=== PATIENT | female | born 2000 ===

== ENCOUNTER 2024-05-15 17:49 | Emergency (ER) | payer SELFPAY ==
[2024-05-15 17:54] VITALS: BP 100/60; PULSE 80; RESP 16; TEMP 37.1; O2SAT 99; BMI 22.2
--- NOTE | 2024-05-15 18:08 | USR_ITS ---
PROCEDURE INFORMATION: Exam: US Pelvis, Transvaginal, Non-Obstetric Exam date and time: 05/15/2024 6:48 PM Age: 23 years old Clinical indication: Other: Bleeding; Additional info: Vaginal bleeding TECHNIQUE: Imaging protocol: Real-time transvaginal pelvic (non-obstetric) ultrasound with image documentation. Transvaginal imaging was used for better evaluation of the endometrium, adnexa, and/or cervix. COMPARISON: No relevant prior studies available. FINDINGS: Uterus: Uterus is retroverted, measuring 3.7 x 4.7 x 4.6 cm. Endometrium measures 4-5 mm in thickness. Intrauterine device in place, lower in position than expected in the region of the lower uterine segment. Right ovary/adnexa: Right ovary measures 4.6 x 4.5 x 3.1 cm. Flow is visualized. Thick-walled right adnexal cyst measuring 3.6 x 2.6 x 2.7 cm. There is an adjacent mildly complex 2.0 cm cyst. Left ovary/adnexa: Left ovary measures 1.5 x 2.0 x 1.7 cm. Flow is visualized. No evidence of adnexal mass. Intraperitoneal space: No significant free fluid. US/US transvaginal [id number] IMPRESSION: 1. Normal flow in both ovaries. No evidence of torsion. 2. Mildly complex thick-walled right adnexal cyst. Follow-up pelvic sonography and ob/gyn physician evaluation in 6-8 weeks is recommended. 3. Intrauterine device within the lower uterine segment. Fabrication Engineer evaluation is recommended.
--- NOTE | 2024-05-15 18:10 | ED_ITS ---
HPI - Female Genitourinary 2 General: Chief complaint: Vaginal Bleeding Stated complaint: vaginal bleeding Time Seen by Provider: 05/15/24 17:54 Source: patient and EMS Mode of arrival: EMS Limitations: no limitations History of Present Illness: 23-year-old female here by ambulance sta michaela she has been having vaginal bleeding off and on for the last 15 days. States the bleeding has not been heavy in nature she has not had any pain she states she does not believe she is she states she normal has a regular period. Patient denies any fever or vaginal discharge states she does have an IUD has been in place for quite some time. Associated symptoms: Deny abdominal pain, headache(s) or nausea Date of Last Menstrual Period: 05/03/24 Related Data Allergies Allergy/AdvReac Type Severity Reaction Status Date / Time No Known Allergies Allergy Verified 05/15/24 18:00 Review of Systems 2 Const: Denies: fever(s), chills, body aches or change in appetite ENMT: Denies: throat pain or dental pain Card: Denies: chest pain Resp: Denies: dyspnea GI: Denies: abdominal pain, nausea, vomiting or diarrhea : Reports: vaginal bleeding Musc: Denies: neck pain or back pain Skin/Breast: Denies: rash Neuro: Denies: headache(s) [facility] ED 2 Female Reproductive History: Date of last menstrual period: 05/03/24 Physical Exam 2 Const: COMMON NORMALS: no acute distress, patient oriented x3 and healthy appearing HENMT: COMMON NORMALS: normocephalic and atraumatic HEAD & SCALP: n ormocephalic and atraumatic Neck/C-Spine: COMMON NORMALS: full ROM and supple Chest: COMMONS NORMALS: normal inspection of the chest Resp: COMMON NORMALS: normal respiratory effort Cardio: COMMON NORMALS: regular rate, regular rhythm and No murmurs present (Cardio) RATE: regular rate RHYTHM: regular rhythm GI: COMMON NORMALS: Normal to inspection, nondistended, normoactive bowel sounds present, Soft to palpation, non-tender and no masses PALPATION: Yes Soft to palpation Extremity: COMMON NORMALS: normal to inspection and full ROM Neuro: COMMON NORMALS: patient oriented x3, moves all extremities and no focal motor deficits Psych: COMMON NORMALS: mental status grossly normal, Normal thought process present and cooperative THOUGHT PROCESS: Normal thought process present Skin: COMMON NORMALS: no rashes or lesions noted and no wounds GENERAL SKIN EXAM: no rashes or lesions noted Course 2 Vital Signs: Vital signs: Vital Signs Temperature 98.7 F 05/15/24 17:54 Pulse Rate 80 05/15/24 17:54 Respiratory Rate 16 05/15/24 17:54 Blood Pressure 100/60 05/15/24 17:54 Pulse Oximetry 99 05/15/24 17:54 Oxygen Delivery Me thod Room Air 05/15/24 17:54 MDM - Female Medical Decision Making Patient presents here with vaginal bleeding her hemoglobin here is normal she is not ultrasound did show that her IUD has migrated I did speak to OB patient is to follow-up with OB outpatient to have it removed she is in no distress or pain no will discharge she is return if worsening she understands agrees to plan Medical Records I reviewed the patient's medical records. Lab Data I reviewed the patient's lab results. 05/15/24 18:22 Laboratory Results WBC 8.03 10^3/uL (3.29-11.43) 05/15/24 18:22 RBC 4.39 10^6/uL (3.85-5.65) 05/15/24 18:22 Hgb 13.30 g/dL (11.27-16.99) 05/15/24 18:22 Hct 40.1 % (36-47) 05/15/24 18:22 MCV 91.3 fl (85-98) 05/15/24 18:22 MCH 30.3 pg (27-33) 05/15/24 18:22 MCHC 33.2 g/dL (30-55) 05/15/24 18:22 RDW 12.8 % (12.1-15.1) 05/15/24 18:22 Plt Count 426 10^3/cmm (157-399) H 05/15/24 18:22 MPV 9.8 fL (7.4-10.4) 05/15/24 18:22 Neut % (Auto) 70.0 % 05/15/24 18:22 Lymph % (Auto) 20.0 % 05/15/24 18:22 [place]ee % (Auto) 7.0 % 05/15/24 18:22 Eos % (Auto) 1.7 % 05/15/24 18:22 Baso % (Auto) 0.6 % 05/15/24 18:22 Neut # (Auto) 5.61 10^3/uL (1.8-7.7) 05/15/24 18:22 Lymph # (Auto) 1.6 10^3/uL (0.8-4.8) 05/15/24 18:22 [place]ee # (Auto) 0.6 10^3/uL (0.2-0.9) 05/15/24 18:22 Eos # (Auto) 0.1 10^3/uL (0.0-0.8) 05/15/24 18:22 Baso # (Auto) 0.1 10^3/uL (0.0-0.1) 05/15/24 18:22 Nucleated RBC % (auto) 0 % 05/15/24 18:22 Nucleated RBCs # 0.0 /100WBC 05/15/24 18:22 PT 13.10 SECONDS (12.1-14.9) 05/15/24 18:22 INR 0.96 (0.8-1.2) 05/15/24 18:22 Ser , Semi-Qnt 1.00 mIU/mL 05/15/24 18:22 All radiology interpretation(s) finalized by discharge Discharge Plan Discharge Patient Disposition: Home Clinical Impression: Vaginal bleeding, Malpositioned IUD Condition: Stable Discharge Orders: Discharge ED (Routine); Ordered 05/15/24 Ordered By: Abel Bingham Referrals: Jhony Raygoza MD [Physician] - 4-7 days Discharge Diet: Advance as tolerated Discharge Activity: Resume usual activity Patient Instructions: Abnormal (Dysfunctional) Uterine Bleeding (ED) Coding Level of Care Code ED [employer] for Chg Michael
[2024-05-15 18:51] LABS: INR 0.96 (0.8-1.2)
[2024-05-15 19:08] LABS: Basophils # 0.1 10^3/uL (0.0-0.1); Basophils % 0.6 %; Eosinophils # 0.1 10^3/uL (0.0-0.8); Eosinophils % 1.7 %; Hematocrit 40.1 % (36-47); Lymphocytes # 1.6 10^3/uL (0.8-4.8); Mean Corpuscular HGB Conc 33.2 g/dL (30-55); Mean Corpuscular Hemoglobin 30.3 pg (27-33); Mean Corpuscular Volume 91.3 fl (85-98); Mean Platelet Volume 9.8 fL (7.4-10.4); Monocytes # 0.6 10^3/uL (0.2-0.9); Neutrophils # 5.61 10^3/uL (1.8-7.7); Nucleated Red Blood Cells % 0 %; Platelet Count 426 10^3/cmm (157-399); Red Blood Count 4.39 10^6/uL (3.85-5.65); Red Cell Distribution Width 12.8 % (12.1-15.1); White Blood Count 8.03 10^3/uL (3.29-11.43)
[2024-05-15 19:44] VITALS: BP 102/61; PULSE 74; O2SAT 99
--- NOTE | 2024-05-18 07:32 | DCPLANNER ---
messaged [facility] for er f/u
== END 2024-05-15 19:44 | disposition home or self-care (01) ==
PROVIDERS: Emergency Provider Emergency Medicine
DX: T83.32XA Displacement of intrauterine contraceptive device, initial encounter (principal); X58.XXXA Exposure to other specified factors, initial encounter; N93.9 Abnormal uterine and vaginal bleeding, unspecified
CPT/HCPCS: 36415; 76830; 84702; 85025; 85610; 99284